=== PATIENT | female | born 1955 | race Caucasian/White ===

== ENCOUNTER 2017-01-27 23:45 | Emergency (ER) | payer BC, OTHER ==
[2017-01-27 23:49] VITALS: BP 120/71; PULSE 82; RESP 16; TEMP 98.1; O2SAT 98
[2017-01-28] MEDS ORDERED: LIDOCAINE 1%/EPINEPHrine 1:100,000 SOLN 20 ML VIAL INFIL ONE (01:00)
[2017-01-28] MEDS ORDERED: TETANUS/DIPHTHERIA TOXOID ADULT 0.5 ML VIAL IM ONE (01:00)
--- NOTE | 2017-01-28 01:13 | PD ---
HPI Chief Complaint: Fall Time Seen by Provider: 00:23 Travel History International Travel<30 days: No Contact w/Intl Traveler<30days: No Traveled to known affect area: No History of Present Illness HPI Patient is a 7-year-old female who tonight was arranging her plants and slipped on some water and fell face forward and has a laceration and contusion to her left temporal zygomatic area there are 2 lacerations one is right above the eyelid the other is right lateral to the orbit she denies passing out she says she slipped but she is unclear about the events and says she doesn't remember clearly patient is not up-to-date with her tetanus shot otherwise patient is healthy except for a rotator cuff surgery and a foot surgery years ago she still is taking apparently narcotics for pain from shingles that she had 6 months ago she takes the narcotic every day so it is not the narcotic they feel that made her fall or hit her head otherwise healthy alert able to convey her history to me in [place] [facility] Past Medical History Tetanus Vaccination: Never Vaccinated Influenza Vaccination: No ?: Not Social History Alcohol Use: Yes (occ) Tobacco Use: No Substance Use: No Allergies-Medications (Allergen,Severity, Reaction): Coded Allergies: No Known Allergies (Unverified , 01/27/17) Review of Systems Except as stated in HPI: all other systems reviewed are Neg Skin: Positive Other (3 lacerations to the left maxillary and left eyelid area oozing blood from a fall tonight slipped) Physical Exam Narrative GENERAL: Obvious lacerations to the left eyebrow eyelid and maxillary left-sided SKIN: Focused skin patient has 3 lacerations: one is 1 cm to the upper outer left eye lid . The second one is 2 cm to the left upper outer eyelid. The third laceration is irregular stellate with avulsion of skin 3 cm to the left maxillary HEAD: Atraumatic. Normocephalic. EYES: Pupils equal and round. No scleral icterus. No injection or drainage. ENT: No nasal bleeding or discharge. Mucous membranes pink and moist. NECK: Trachea midline. No JVD. CARDIOVASCULAR: Regular rate and rhythm. No murmur appreciated. RESPIRATORY: No accessory muscle use. Clear to auscultation. Breath sounds equal bilaterally. GASTROINTESTINAL: Abdomen soft, non-tender, nondistended. Hepatic and splenic margins not palpable. MUSCULOSKELETAL: No obvious deformities. No clubbing. No cyanosis. No edema. NEUROLOGICAL: Awake and alert. No obvious cranial nerve deficits. Motor grossly within normal limits. Normal speech. PSYCHIATRIC: Appropriate mood and affect; insight and judgment normal. Data Data Last Documented VS Vital Signs Date Time Temp Pulse Resp B/P (MAP) Pulse Ox O2 Delivery O2 Flow Rate FiO2 01/28/17 02:29 01/27/17 23:49 98.1 82 16 98 Room Air Orders Orders Lidocai-Epi 1%-1:100,000 Inj (Xylocaine- (01/28/17 01:00) Tetanus/Diphtheria Tox Adult (Tetanus/Di (01/28/17 01:00) Ct Brain W/O Iv Contrast(Rout) (01/28/17 ) Ct Facial Bones W/O Iv Cont (01/28/17 ) Ed Discharge Order (01/28/17 02:27) MDM Medical Decision Making Medical Screen Exam Complete: Yes Emergency Medical Condition: Yes Differential Diagnosis Traumatic lacerations and closed head injury lacerations to the zygomatic area as well as left eyebrow eyelid Narrative Course I do a suture repair of 2 lacerations above the left eyebrow eyelid I am only able to glue the irregular avulsed skin on the maxillary left cheek tetanus is updated and she is discharged to come back in 5 days for the suture removal tolerated the procedure well is appropriate for discharge Procedures Procedure Narrative Laceration repair; area irrigated with normal saline and anesthesia with 1% with epi injected 1 cc total also did a regional block of the supra orbital notch use 6. 0 nylon one stitch in the 1 Similac to the left upper eyebrow 2 stitches in the 2 cm lax in the left upper eyebrow and then Dermabond was used to approximate the flap that is left from abrasion to the maxillary left which was 3 cm irregular with skin avulsion unable to so patient tolerated the procedure well and is ready for discharge follow-up in 5 days to have sutures removed Diagnosis Primary Impression: Laceration of face Patient Instructions: General Instructions, Laceration (ED) Additional Instructions: return to ER or your doctor for suture rermoval ... keep face dry for next 2 days Disposition: 01 DISCHARGE HOME Condition: Good Chaim Durbin MD Jan 28, 2017 01:13
--- NOTE | 2017-01-28 01:37 | RADRPT ---
EXAM DATE/TIME: 01/28/2017 01:12 [facility] COMPARISON: No previous studies available for comparison. INDICATIONS : Trauma, fall. Abrasion to left eye. RADIATION DOSE: 46.13 CTDIvol (mGy) MEDICAL HISTORY : None SURGICAL HISTORY : None. ENCOUNTER: Initial ACUITY: 1 day PAIN SCALE: 4/10 LOCATION: cranial TECHNIQUE: Multiple contiguous axial images were obtained of the head. Using automated exposure control and adj ustment of the mA and/or kV according to patient size, radiation dose was kept as low as reasonably a chievable to obtain optimal diagnostic quality images. DICOM format image data is available electro nically for review and comparison. FINDINGS: CEREBRUM: The ventricles are normal for age. No evidence of midline shift, mass lesion, hemorrhage or acute in farction. No extra-axial fluid collections are seen. POSTERIOR FOSSA: The cerebellum and brainstem are intact. The 4th ventricle is midline. The cerebellopontine angle i s unremarkable. EXTRACRANIAL: The visualized portion of the orbits is intact. SKULL: The calvaria is intact. No evidence of skull fracture. CONCLUSION: 1. No evidence of acute intracranial pathology. No masses are identified. Dino Campos MD on January 28, 2017 at 1:35 Board Certified Radiologist. This report was verified electronically.
--- NOTE | 2017-01-28 01:38 | RADRPT ---
EXAM DATE/TIME: 01/28/2017 01:14 [facility] COMPARISON: No previous studies available for comparison. INDICATIONS : Trauma, fall. Abrasion to left eye. RADIATION DOSE: 36.57 CTDIvol (mGy) MEDICAL HISTORY : None SURGICAL HISTORY : None. ENCOUNTER: Initial ACUITY: 1 day PAIN SCORE: 6/10 LOCATION: Left facial TECHNIQUE: Volumetric scanning of the facial bones was performed. Using automated exposure control and adjustme nt of the mA and/or kV according to patient size, radiation dose was kept as low as reasonably achiev able to obtain optimal diagnostic quality images. DICOM format image data is available electronicRiseSmart y for review and comparison. FINDINGS: ORBITS: The orbital and infraorbital osseous structures are intact. The retroconal structures have a normal configuration. No radiopaque foreign bodies are seen. NASAL BONE: The nasal bone and maxillary spine are intact ZYGOMATIC ARCHES: Symmetric without evidence of fracture. SINUSES: The maxillary, ethmoid and frontal sinuses are intact. No air-fluid levels seen. NASAL CAVITY: The nasal septum is intact and midline. The lacrimal ducts are intact. SOFT TISSUES: No radiopaque foreign bodies seen. No soft-tissue swelling is seen. INTRACRANIAL: No intracranial air seen. CRIBIFORM PLATE: Grossly intact. CONCLUSION: 1. There is no evidence of acute fracture. Dino Campos MD on January 28, 2017 at 1:36 Board Certified Radiologist. This report was verified electronically.
== END 2017-01-28 02:50 | disposition home or self-care (01) ==
LOC: NEPC 23:45
DX: S01.112A Laceration without foreign body of left eyelid and periocular area, initial encounter (principal); S01.81XA Laceration without foreign body of other part of head, initial encounter; Z23 Encounter for immunization; W01.0XXA Fall on same level from slipping, tripping and stumbling without subsequent striking against object, initial encounter
CPT/HCPCS: 12014; 12042; 70450; 70486; 90471; 90714

== ENCOUNTER 2017-01-30 19:05 | Emergency (ER) | payer OTHER ==
[~2017-01-30] VITALS: Ht 162.6 cm; Wt 55.0 kg
[2017-01-30 19:07] VITALS: BP 117/59; PULSE 91; RESP 16; TEMP 98.5; O2SAT 98
--- NOTE | 2017-01-30 19:35 | PD ---
HPI Chief Complaint: Wound/Suture/Staple Re-Check Time Seen by Provider: 19:21 Travel History International Travel<30 days: No Contact w/Intl Traveler<30days: No Traveled to known affect area: No History of Present Illness HPI 61-year-old female presents to the emergency department for suture removal. Patient had sutures placed 2 days ago in the emergency department. The patient is Anguillan-speaking, very questionable translation to be done through her who speaks Faroese at bedside. She is had no complications. She is doing well and has no medical complaints at this time. [facility] Past Medical History Medical History: Denies Significant Hx Diminished Hearing: No Tetanus Vaccination: < 5 Years ?: Not LMP: menapause Past Surgical History Other Surgery: Yes (hernia/left rotator cuff/rt big rosalio sx) Social History Alcohol Use: Yes (occ) Tobacco Use: No Substance Use: No Allergies-Medications (Allergen,Severity, Reaction): Coded Allergies: No Known Allergies (Unverified , 01/27/17) Review of Systems Except as stated in HPI: all other systems reviewed are Neg Physical Exam Narrative GENERAL: Well-nourished, well-developed female patient, afebrile. SKIN: Focused skin assessment warm/dry. Patient has 2 small well-healing lacerations lateral to the left eye. She also has a skin avulsion with Dermabond to the left cheek. HEAD: Normocephalic. EYES: No scleral icterus. No injection or drainage. NECK: Supple, trachea midline. No JVD or lymphadenopathy. CARDIOVASCULAR: Regular rate and rhythm without murmurs, gallops, or rubs. RESPIRATORY: Breath sounds equal bilaterally. No accessory muscle use. Lungs sounds are clear to auscultation. Data Data Last Documented VS Vital Signs Date Time Temp Pulse Resp B/P (MAP) Pulse Ox O2 Delivery O2 Flow Rate FiO2 01/30/17 19:07 98.5 91 16 117/59 (78) 98 Room Air MDM Medical Decision Making Medical Screen Exam Complete: Yes Emergency Medical Condition: Yes Medical Record Reviewed: Yes Differential Diagnosis Suture removal versus dehiscence versus cellulitis Narrative Course 61-year-old female presents to the emergency department for suture removal. Patient had sutures placed 2 days ago. Lacerations are well healing. Sutures are removed without difficulty. There is no evidence of dehiscence or cellulitis on exam. Patient and her are instructed on proper wound care. They're to return here for any symptoms of infection or worsening symptoms. They verbalized agreement and understanding. The patient was discharged in stable condition with instructions, including return instructions and follow up instructions. Diagnosis Primary Impression: Visit for suture removal Referrals: Primary Care Physician call for appointment Patient Instructions: General Instructions, Stitches Removal (ED) Additional Instructions: Clean gently with soap and water twice daily. [id number] antibiotic ointment to lacerations that are not glued. No antibiotic ointment to the skin glue. Do not pick at skin glue. It will come off on its own. After lacerations are well healed, you can use Mederma [id number] to reduce scar. Follow-up with your primary care physician. Return to the emergency department for any acute worsening of symptoms. Med/Other Pt SpecificInfo: No Change to Meds Disposition: 01 DISCHARGE HOME Condition: Stable Ophelia Castillo Jan 30, 2017 19:35
== END 2017-01-30 20:40 | disposition home or self-care (01) ==
LOC: NEPE 19:05
DX: Z48.02 Encounter for removal of sutures (principal)
CPT/HCPCS: 99281